=== PATIENT | male | born 1995 | race Caucasian/White ===

== ENCOUNTER 2017-03-16 22:23 | Emergency (ER) | payer BC ==
[~2017-03-16] VITALS: Ht 198.1 cm; Wt 90.3 kg
[2017-03-16] MEDS ORDERED: SODIUM CHLORIDE FLUSH 10ML SYR IVF ONE (23:00)
[2017-03-16] MEDS ORDERED: SODIUM CHLORIDE 0.9% 1,000ML IVBOLUS ONE (23:30)
[2017-03-17] MEDS ORDERED: OMNIPAQUE 350 MG/ML, 100ML BOTTLE ONE (00:19)
[2017-03-17 00:29] LABS: ASPARTATE AMINO TRANSFERASE 13 U/L (15-37); BLOOD UREA NITROGEN 15 mg/dL (7-18)
[2017-03-17 01:38] VITALS: BP 116/68
== END 2017-03-17 01:42 | disposition home or self-care (01) ==
LOC: ED 23:59
DX: L05.91 Pilonidal cyst without abscess (principal); R10.30 Lower abdominal pain, unspecified; K63.89 Other specified diseases of intestine
CPT/HCPCS: 36415; 74177; 80053; 81001; 83690; 85025; 87070; 87205; 99285; Q9967

== ENCOUNTER 2017-10-18 06:48 | Emergency (ER) | payer SELFPAY ==
[~2017-10-18] VITALS: Ht 198.1 cm; Wt 87.9 kg
[2017-10-18 06:56] VITALS: BP 138/86
[2017-10-18] MEDS ORDERED: AMPH20TA2 PO (07:06)
[2017-10-18] MEDS ORDERED: DEXAMETHASONE 4 MG TABLET ONE (07:18)
[2017-10-18] MEDS ORDERED: DEXAMETHASONE 4 MG TABLET PO ONE (07:30)
== END 2017-10-18 07:37 | disposition home or self-care (01) ==
LOC: ED 07:31
DX: J02.0 Streptococcal pharyngitis (principal)
CPT/HCPCS: 99283